=== PATIENT | female | born 1955 | race Caucasian/White ===

== ENCOUNTER → 2020-05-16 | Outpatient (CLI) | payer OTHER ==
[~2020-05-16] MED LIST: ASPI81TA45 PO; CALC1CAP8 PO; DENO60DI IM; INUL1TAB4 PO; LATA2.5D4 EACHEYE; LEVO50TA PO; LISI5TAB7 PO; MAGNESIUM PO; MULT-658 PO; OMEP-110 PO; TIMO5DRO33 EACHEYE
[2020-05-16 11:50] LABS: BASOPHILS % (AUTO) 0 % (0-1); EOSINOPHILS % (AUTO) 1 % (1-7); LYMPHOCYTES % (AUTO) 53 % (22-44); MEAN CORPUSCULAR HEMOGLOBIN 32.4 pg (27.0-34.8); MEAN CORPUSCULAR HGB CONC 34.3 g/dL (32.4-35.8); MEAN PLATELET VOLUME 7.9 fL (7.4-10.4); MONOCYTES % (AUTO) 8 % (2-9); NEUTROPHILS % (AUTO) 38 % (42-75); PLATELET COUNT 210 x10^3/uL (130-400); RED BLOOD COUNT 3.75 x10^6/uL (3.82-5.3); RED CELL DISTRIBUTION WIDTH 14.6 % (9.6-15.2)
[2020-05-16 12:00] LABS: ALANINE AMINOTRANSFERASE 38 U/L (12-78); ALBUMIN 3.2 g/dL (3.4-5.0); ANION GAP 3 mmol/L (5-15); CALCIUM 10.8 mg/dL (8.5-10.1); CHLORIDE 113 mmol/L (98-107)
[2020-05-16 12:01] LABS: PROTHROMBIN TIME 10.7 Seconds (9.6-11.5)
[2020-05-16 12:03] LABS: ALKALINE PHOSPHATASE 103 U/L (45-117); BILIRUBIN,TOTAL 0.4 mg/dL (0.2-1.0); CREATININE 0.94 mg/dL (0.55-1.02); TOTAL PROTEIN 7.2 g/dL (6.4-8.2)
[2020-05-16 12:39] LABS: MD SCAN
== END | disposition home or self-care (01) ==
LOC: STAR 10:27
PROVIDERS: ATTEND Orthopaedic Surgery
DX: Z01.810 Encounter for preprocedural cardiovascular examination (principal); Z01.818 Encounter for other preprocedural examination; M25.552 Pain in left hip; Z96.642 Presence of left artificial hip joint; Z20.822 Contact with and (suspected) exposure to COVID-19
CPT/HCPCS: 80053; 83036; 85025; 85610; 85730; 87081; 87147; 87635; 93005

== ENCOUNTER 2020-05-22 10:19 | Inpatient (IN) | payer OTHER ==
[~2020-05-22] VITALS: Ht 144.8 cm; Wt 59.2 kg
[2020-05-22] MEDS: DOCUSATE 100 MG CAPSULE PO SCH ×2 (09:00→21:05)
[~2020-05-22 10:19] MED LIST changes: +BISACODYL 10 MG SUPP PR PRN; +DIPHENHYDRAMINE 50 MG CAPSULE PO PRN; +EPINEPHRINE 1 MG/ML, 1ML ONE; +HYDROcodone/APAP 5/325 TABLET PO PRN; +KETOROLAC 60 MG/2 ML ONE; +MAGNESIUM HYDROXIDE 8%, 30ML UDC PO PRN; +ONDANSETRON 2MG/ML, 2ML IV PRN; +ONDANSETRON 4 MG TABLET PO PRN; +OXYcodone IR 5MG TABLET PO PRN; +ROPIvacaine/PF 0.2%, 20 ML ONE; +SENNA/DOCUSATE TABLET PO PRN; +SODIUM CHLORIDE 0.9% 50 ML ONE; +TRANEXAMIC ACID 100 MG/ML, 10ML ONE; +VANCOMYCIN 1,000 MG ONE; +ZOLPIDEM 5MG TABLET PO PRN
[2020-05-22] MEDS ORDERED: VANCOMYCIN PER PHARMACY MC STA (10:29)
[2020-05-22] MEDS ORDERED: MIDAZOLAM 1 MG/ML, 2ML ONE (10:37)
[2020-05-22] MEDS ORDERED: FENTANYL PF 250 MCG/5ML ONE (10:37)
[2020-05-22] MEDS: LACTATED RINGERS 1,000 ML IV SCH ×2 (10:55→16:01)
[2020-05-22] MEDS ORDERED: HYDROmorphone 1 MG/ML, 1ML INJ IVPush PRN (11:00)
[2020-05-22] MEDS ORDERED: PROMETHAZINE 25 MG/ML, 1ML IVPush PRN (11:00)
[2020-05-22] MEDS ORDERED: HALOPERIDOL 5 MG/ML IV PRN (11:00)
[2020-05-22] MEDS ORDERED: ACETAMINOPHEN 500 MG TABLET PO ONE (11:00)
[2020-05-22] MEDS ORDERED: ACETAMINOPHEN 325 MG TABLET PO PRN (11:00)
[2020-05-22] MEDS ORDERED: LABETALOL 5MG/ML, 20ML IV PRN (11:00)
[2020-05-22] MEDS ORDERED: VANCOMYCIN PMX 1GM/200ML 200 ML IVPB ONE (11:00)
[2020-05-22] MEDS ORDERED: hydrALAzine 20 MG/ML, 1ML IV PRN (11:00)
[2020-05-22] MEDS ORDERED: CHLORHEXIDINE 15 ML UDC MM ONE (11:00)
[2020-05-22] MEDS ORDERED: GABAPENTIN 300 MG CAPSULE PO ONE (11:00)
[2020-05-22] MEDS ORDERED: FENTANYL PF 100 MCG/2ML IV PRN (11:00)
[2020-05-22] MEDS ORDERED: OXYcodone 5 MG/5 ML ORAL.SOL UDC PO PRN (11:00)
[2020-05-22] MEDS ORDERED: MEPERIDINE/PF 25MG/0.5ML IVPush PRN (11:00)
[2020-05-22] MEDS ORDERED: DEXAMETHASONE 4 MG/ML, 1ML ONE (11:04)
[2020-05-22] MEDS ORDERED: ONDANSETRON 2MG/ML, 2ML ONE (11:04)
[2020-05-22] MEDS ORDERED: CEFAZOLIN 1,000 MG ONE (11:04)
[2020-05-22] MEDS ORDERED: ROCURONIUM 10 MG/ML,10ML ONE (11:04)
[2020-05-22] MEDS ORDERED: GLYCOPYRROLATE 0.2MG/1ML, 5ML ONE (11:04)
[2020-05-22] MEDS ORDERED: NEOSTIGMINE 1 MG/ML, 10ML ONE (11:04)
[2020-05-22] MEDS ORDERED: PHENYLEPHRINE 10 MG/ML ONE (11:04)
[2020-05-22] MEDS ORDERED: PROPOFOL 10 MG/ML, 20ML ONE (11:04)
[2020-05-22] MEDS ORDERED: FENTANYL PF 100 MCG/2ML ONE (12:54)
[2020-05-22] MEDS: ACETAMINOPHEN 650 MG/20.3 ML UDC PO PRN (16:54)
[2020-05-22] MEDS: NS + 20MEQ KCL 1,000 ML IV SCH (16:54)
[2020-05-22 17:20] VITALS: BP 114/75
[2020-05-22] MEDS: ASPIRIN 81 MG TABLET EC PO SCH (17:28)
[2020-05-22 18:34] VITALS: BP 102/66
[2020-05-22] MEDS ORDERED: LATANOPROST OPHTH 0.005%, 2.5ML EACHEYE SCH (21:00)
[2020-05-22] MEDS ORDERED: LISINOPRIL 5 MG TABLET PO SCH (21:00)
[2020-05-22] MEDS: CEFAZOLIN PMX 2GM/50ML 50 ML IVPB SCH (21:05)
[2020-05-22 23:25] VITALS: BP 94/61
[2020-05-23 03:53] VITALS: BP 108/68
[2020-05-23] MEDS: NS + 20MEQ KCL 1,000 ML IV SCH (04:41)
[2020-05-23] MEDS: ASPIRIN 81 MG TABLET EC PO SCH (05:31)
[2020-05-23] MEDS: CEFAZOLIN PMX 2GM/50ML 50 ML IVPB SCH (05:31)
[2020-05-23] MEDS ORDERED: DEXAMETHASONE 4 MG/ML, 1ML IVPush SCH (06:00)
[2020-05-23] MEDS ORDERED: LEVOTHYROXINE 50 MCG TABLET PO SCH (06:00)
[2020-05-23 07:25] VITALS: BP 115/74
[2020-05-23] MEDS: DOCUSATE 100 MG CAPSULE PO SCH (08:21)
[2020-05-23] MEDS ORDERED: MELO7.5T31 PO (08:58)
[2020-05-23] MEDS ORDERED: TRAM50TA2 PO (08:59)
[2020-05-23] MEDS ORDERED: OXYC5CAP2 PO (09:00)
[2020-05-23] MEDS ORDERED: TIMOLOL OPHTH 0.5%, 5ML EACHEYE SCH (09:00)
[2020-05-23] MEDS ORDERED: ASPI-430 PO (10:00)
[2020-05-23 12:10] VITALS: BP 115/72
[2020-05-23] MEDS: ACETAMINOPHEN 650 MG/20.3 ML UDC PO PRN (12:16)
== END 2020-05-23 13:30 | disposition home or self-care (01) | DRG 468 ==
LOC: OUT 10:19 → 4NE 14:13 → OUT 22:12 → 4NE 22:12 → DCLOUNGE 05-23 13:11
PROVIDERS: ADMIT Orthopaedic Surgery; ATTEND Orthopaedic Surgery
PROC: 0SPE0JZ Removal of Synthetic Substitute from Left Hip Joint, Acetabular Surface, Open Approach (ICD-10-PCS; 2020-05-22)
PROC: 0SRE03Z Replacement of Left Hip Joint, Acetabular Surface with Ceramic Synthetic Substitute, Open Approach (ICD-10-PCS; principal; 2020-05-22 12:15)
DX: T84.031A Mechanical loosening of internal left hip prosthetic joint, initial encounter (principal); Z96.642 Presence of left artificial hip joint; Y82.8 Other medical devices associated with adverse incidents; Y92.89 Other specified places as the place of occurrence of the external cause
CPT/HCPCS: 36415; 72170; 85014; 85018; 86850; 86900; C1713; G0378; J0171; J0690; J1100; J1885; J2250; J2405; J2704; J2710; J2795; J3010; J3370; J3480; C1776; J2370; J7120